=== PATIENT | female | born 1945 | race American Indian/Alaskan Native ===

== ENCOUNTER 2017-08-31 14:33 | Inpatient (IN) | payer MEDICARE ==
[2017-08-31] MEDS ORDERED: ATIVAN ONE (14:57)
[2017-08-31] MEDS ORDERED: ATIVAN IV ONE (15:00)
[2017-08-31] MEDS ORDERED: KEPPRA 1,000 MG/NS 0.75% 100ML 1,000 MG/100 ML BAG IV ONE (15:01)
[2017-08-31] MEDS ORDERED: NACL 0.9% 500 ML 500 ML IV ONE (15:06)
[2017-08-31 16:02] LABS: Basophils % (Auto) 0.2 % (0.0-1.8); Eosinophils % (Auto) 0.1 % (0.0-4.3); Hematocrit 32.7 % (30.3-42.9); Hemoglobin 10.9 gm/dl (10.1-14.3); Lymphocytes # (Auto) 0.4 K/mm3 (1.2-5.4); Mean Corpuscular HGB Conc 33 % (30-34); Mean Corpuscular Hemoglobin 32 pg (28-32); Mean Corpuscular Volume 97 fl (79-97); Monocytes # (Auto) 0.5 K/mm3 (0.0-0.8); Monocytes % (Auto) 5.4 % (0.0-7.3); Platelet Count 225 K/mm3 (140-440); Red Blood Count 3.38 M/mm3 (3.65-5.03); Red Cell Distribution Width 14.2 % (13.2-15.2)
[2017-08-31 16:25] LABS: Albumin 3.9 g/dL (3.9-5); Calcium 9.1 mg/dL (8.4-10.2)
--- NOTE | 2017-08-31 16:50 | Cat Scan Report ---
FINAL REPORT EXAM: CT HEAD/BRAIN WO CON HISTORY: Seizure TECHNIQUE: Standard unenhanced CT of the head at 5.0 millimeter axial increments. Exam is technically limited by patient motion. PRIORS: CT head 09/20/2016 FINDINGS: There is a new area of hypodensity in the right superior parietal region and occipital region (axial image 5, series 8). Findings are consistent with an evolving subacute infarct. The ventricular system is normal in size and configuration. There is moderate cerebral atrophy. There is high density material along the cortical surface involving the medial aspect of the right occipital lobe (axial image 31, series 6). This appearance is typical of surface calcification or an AVM. There is no evidence for mass lesion, mass effect, midline shift, or acute intracranial hemorrhage. No evidence for acute skull fracture is seen. No abnormality in the overlying scalp soft tissues is seen. Visualized paranasal sinuses are clear. IMPRESSION: 1. New area of hypodensity in the right superior parietal and occipital region consistent with an evolving subacute infarct 2. Ribbon-like high density material along the cortical surface of the medial right occipital lobe, unchanged. Findings typical of calcification or an AVM. This can be further differentiated by MRI.
[2017-08-31] MEDS ORDERED: HumuLIN R IV ONE (16:51)
--- NOTE | 2017-08-31 20:58 | Emergency Department Report ---
HPI <DAYJOSH - Last Filed: 08/31/17 23:09> - HPI HPI: 72 year-old female presents to the emergency department by EMS from home with the original complaint of multiple seizures. Apparently The patient had a total of 3 seizures with the first 2 being relatively short what the third seizure lasting about 3 minutes. The patient presents altered and unable to give any history. There is some previous records that show that the patient does have some history of seizures but unknown if she is on any antiepileptic medications. The family later came bedside and says that the patient was at her normal status this morning when she went to a graduation and then afterwards when they went out to [facility] for lunch. However when they returned home the patient had some weakness and was unable to ambulate to the bathroom. She then started appearing to droop or head and stare off into space. This was the point where they called 911 and shortly afterwards the patient started having some convulsions consistent with previous seizures. The patient received 2 mg of intranasal Ativan in route. Records also show that the patient has a history of previous CVA, DVT, diabetes. <SERGIO HU S - Last Filed: 09/01/17 09:23> - General Chief Complaint: Seizure Time Seen by Provider: 08/31/17 15:08 ED Past Medical Hx <JOSH DAY - Last Filed: 08/31/17 23:09> - Past Medical History Previous Medical History?: Yes Hx Hypertension: Yes Hx CVA: Yes Hx Diabetes: Yes Hx Deep Vein Thrombosis: Yes Hx Seizures: Yes (Hx) Hx Asthma: Yes (Hx) Additional medical history: HIGH CHOLESTEROL. DVT. PE. Encephalopathy - Surgical History Past Surgical History?: Yes Additional Surgical History: HYSTERECTOMY - Social History Smoking Status: Unknown if ever smoked <SERGIO HU S - Last Filed: 09/01/17 09:23> - Medications Home Medications: Home Medications Medication Instructions Recorded Confirmed Last Taken Type Amlodipine Besylate [Norvasc] 5 mg PO QDAY 10/01/16 10/01/16 Unknown History Insulin Glargine [Lantus VIAL] 10 units SC BID 10/01/16 10/01/16 Unknown History Lovastatin [Altoprev] 20 mg PO QDAY 10/01/16 10/01/16 Unknown History Memantine HCl [Namenda Xr] 20 mg PO QDAY 10/01/16 10/01/16 Unknown History Metformin HCl [Glucophage] 500 mg PO BID 10/01/16 10/01/16 Unknown History Topiramate [Topamax] 100 mg PO BID 10/01/16 10/01/16 Unknown History glipiZIDE [Glucotrol] 5 mg PO BID 10/01/16 10/01/16 Unknown History levETIRAcetam [Keppra TAB] 1,000 mg PO BID #60 tablet 10/08/16 Unknown Rx ED Review of Systems ROS: Stated complaint: SEIZURE Other details as noted in HPI <JOSH DAY - Last Filed: 08/31/17 23:09> ROS: Stated complaint: SEIZURE Other details as noted in HPI Comment: Unobtainable due to pts medical conditions <SERGIO HU - Last Filed: 09/01/17 09:23> Physical Exam - Physical Exam Vital Signs: Vital Signs 08/31/17 08/31/17 14:54 15:09 Pulse Rate 153 H Respiratory 18 16 Rate Blood Pressure 145/79 O2 Sat by Pulse 100 Oximetry <JOSH DAY - Last Filed: 08/31/17 23:09> - Physical Exam Vital Signs: Vital Signs 08/31/17 14:54 Pulse Rate 153 H Respiratory 18 Rate Blood Pressure 145/79 O2 Sat by Pulse 100 Oximetry Physical Exam: GENERAL: Patient is ill-appearing and altered/confused. HENT: Normocephalic. Atraumatic. Patient has moist mucous membranes. EYES: Extraocular motions are intact. Pupils equal reactive to light bilaterally. NECK: Supple. Trachea is midline. CHEST/LUNGS: Clear to auscultation. There is no respiratory distress noted. HEART/CARDIOVASCULAR: Regular. There is moderate tachycardia. There is no murmur. ABDOMEN: Abdomen is soft, nontender. Patient has normal bowel sounds. There is no abdominal distention. SKIN: Skin is warm and dry. NEURO: The patient's eyes are open spontaneously but she is otherwise unresponsive. She occasionally will become rigid for a few seconds but this is not rhythmic and does not appear convulsive. She withdraws from painful stimuli. She is seen moving all 4 of her extremities. She is nonverbal and does not follow any commands. MUSCULOSKELETAL: There is no tenderness or deformity. There is no evidence of acute injury. <SERGIO HU - Last Filed: 09/01/17 09:23> ED Course Vital Signs 08/31/17 08/31/17 14:54 15:09 Pulse Rate 153 H Respiratory 18 16 Rate Blood Pressure 145/79 O2 Sat by Pulse 100 Oximetry <JOSH DAY - Last Filed: 08/31/17 23:09> Vital Signs 08/31/17 14:54 Pulse Rate 153 H Respiratory 18 Rate Blood Pressure 145/79 O2 Sat by Pulse 100 Oximetry - Reevaluation(s) Reevaluation #1: 08/31/17 21:00 NIH Stroke Scale/Score (NIHSS) from [employer] [place] on 08/31/2017 All calculations should be rechecked by clinician prior to use RESULT SUMMARY: 13 points NIH Stroke Scale INPUTS: 1A: Level of consciousness > 2 = Requires repeated stimulation to arouse 1B: Ask month and age > 2 = Aphasic 1C: 'Blink eyes' & 'squeeze hands' > 2 = Performs 0 tasks 2: Horizontal extraocular movements > 0 = Normal 3: Visual aguilar > 0 = No visual loss 4: Facial palsy > 0 = Normal symmetry 5A: Left arm motor drift > 0 = No drift for 10 seconds 5B: Right arm motor drift > 0 = No drift for 10 seconds 6A: Left leg motor drift > 0 = No drift for 5 seconds 6B: Right leg motor drift > 0 = No drift for 5 seconds 7: Limb Ataxia > 0 = No ataxia 8: Sensation > 2 = Coma/unresponsive 9: Language/aphasia > 3 = Coma/unresponsive 10: Dysarthria > 2 = Mute/anarthric 11: Extinction/inattention > 0 = No abnormality This NIH stroke scale does not appear completely valid as a patient does show some spontaneous movement of her extremities but is unable to show that there is no drift for an extended period of time as she does not follow any commands. It is also hard to test for sensation and her visual aguilar. - Consultations Consultation #1: I spoke with the telemedicine neurologist, Dr. Whiting, who recommended that the patient receive a CT angiography of the head and neck. The original CT of the head showed a read that says that there could be a "evolving subacute" infarction. If there are signs of thrombosis or occlusion, then the patient may need transfer to another facility. If negative, the patient should be kept at [facility] and should have an MRI. The patient presented with seizures, there is no obvious last known well time, and she was not a TPA candidate. 08/31/17 20:56 09/01/17 09:22 <SERGIO HU - Last Filed: 09/01/17 09:23> - EJ/Peripheral Line Arm R Time Out Performed: Yes Indications: nurses unable to establis Skin Cleansed in Sterile Fashion: Yes Size: 20 Dressing Placed: Tegaderm, tape Patient Tolerated Procedure: well Additional Comments: ultrasound guided <SERGIO HU - Last Filed: 09/01/17 09:23> ED Medical Decision Making - Lab Data Result diagrams: 08/31/17 15:45 08/31/17 15:45 - Medical Decision Making Patient CTA of the head and neck were essentially within normal limits. Patient will be admitted to the hospitalist service at this time Dr. Wise was consulted. <BARBJOSH - Last Filed: 08/31/17 23:09> - Lab Data Result diagrams: 08/31/17 15:45 08/31/17 15:45 - EKG Data -: EKG Interpreted by Sc EKG shows normal: sinus rhythm (PVCs), axis (left axis deviation), intervals, QRS complexes (Q wave to the inferior leads), ST-T waves Rate: tachycardia (132 bpm) - EKG Data When compared to previous EKG there are: previous EKG unavailable Interpretation: other (sinus tachycardia with PVCs, left axis deviation, Q waves in inferior leads) - Radiology Data Radiology results: report reviewed EXAM: CT HEAD/BRAIN WO CON HISTORY: Seizure TECHNIQUE: Standard unenhanced CT of the head at 5.0 millimeter axial increments. Exam is technically limited by patient motion. PRIORS: CT head 09/20/2016 FINDINGS: There is a new area of hypodensity in the right superior parietal region and occipital region (axial image 5, series 8). Findings are consistent with an evolving subacute infarct. The ventricular system is normal in size and configuration. There is moderate cerebral atrophy. There is high density material along the cortical surface involving the medial aspect of the right occipital lobe (axial image 31, series 6). This appearance is typical of surface calcification or an AVM. There is no evidence for mass lesion, mass effect, midline shift, or acute intracranial hemorrhage. No evidence for acute skull fracture is seen. No abnormality in the overlying scalp soft tissues is seen. Visualized paranasal sinuses are clear. IMPRESSION: 1. New area of hypodensity in the right superior parietal and occipital region consistent with an evolving subacute infarct 2. Ribbon-like high density material along the cortical surface of the medial right occipital lobe, unchanged. Findings typical of calcification or an AVM. This can be further differentiated by MRI. Transcribed By: [facility] Dictated By: TIERA RODRIGUES MD Electronically Authenticated By: TIERA RODRIGUES MD Signed Date/Time: 08/31/17 1647 PROCEDURE: CT ANGIO HEAD TECHNIQUE: Computerized tomographic angiography of the head was performed after the IV injection of iodinated nonionic contrast including image processing. The image data was postprocessed using 2-dimensional multiplanar reformatted (MPR) and 3-dimensional (MIP and/or volume rendered) techniques. HISTORY: CVA COMPARISON: No prior studies are available for comparison. FINDINGS: This study is limited due to motion artifacts. Intracranial vessels: Carotid siphon: Normal. Anterior cerebral: Normal. Middle cerebral: Normal. Posterior cerebral:Normal. Vertebral arteries including basilar: Normal. Aneurysms: None. Dural sinuses: Normal. IMPRESSION: No obvious abnormality involving the [place]. Limited study due to motion artifacts. Transcribed By: [facility] [place] Dictated By: LOURDES ELDER Electronically Authenticated By: LOURDES ELDER Signed Date/Time: 08/31/17 7285 PROCEDURE: CT ANGIO NECK TECHNIQUE: Computerized tomographic angiography of the neck was performed after the IV injection of iodinated nonionic contrast including image processing. The image data was postprocessed using 2-dimensional multiplanar reformatted (MPR) and 3-dimensional (MIP and/or volume rendered) techniques. HISTORY: CVA COMPARISON: No prior studies are available for comparison. Note: Assessment of carotid artery stenosis is based on measurement of the distal internal carotid artery diameter as the denominator for stenosis calculations and the [place] Symptomatic Carotid Endarterectomy Trial (NASCET) stenosis criteria . CPT 3100F FINDINGS: Sinuses: Normal . Non vascular cervical structures: No significant abnormality . Aortic arch: Aortic arch is not completely included in the study. Origins of great vessels are not included.. Right carotid artery: Normal . Left carotid artery: Normal . Vertebral arteries: Normal . Left lobe thyroid demonstrates an inhomogeneous nodule measuring 1.4 x 1.4 centimeters. Multilevel cervical spondylosis is noted with moderate degree bilateral neural foraminal stenosis at C6-7 IMPRESSION: Origins of great vessels are not included in the study. Otherwise unremarkable study. Left lobe thyroid nodule. Ultrasound evaluation is recommended. Multilevel cervical spondylosis most marked at C6-7. Transcribed By: [facility] [place] Dictated By: LOURDES ELDER Electronically Authenticated By: LOURDES ELDER Signed Date/Time: 08/31/17 9363 - Medical Decision Making The patient's initial presentation was for possible status epilepticus as she had had 3 witnessed seizures prior to presentation including one that lasted for minutes. When she got us she did not appear to be in the midst of a seizure but does show confusion and unable to cooperate. She had moderate tachycardia. An IV was placed and she was given IV fluid, Keppra and some Ativan. A CT of the head was done that did not show any bleed, shift, mass but did show concern for an "evolving subacute infarct." For this reason I spoke with neurology who recommended a CT angiography of the head and neck to make sure that there is no acute occlusion, thrombosis or stenosis. We had some difficulty getting appropriate vascular access to do the angiography testing but eventually were able to obtain this and it did not show any signs of any other acute process. The labs show hyperglycemia with a blood sugar of about 450 but she does not appear to be in diabetic ketoacidosis. She was given IV insulin. Family eventually M bedside and discussed some signs of possible strokelike activity prior to the seizures. However there was not any specific last known well time, and the patient's symptoms which are generalized, the patient did not appear to be a TPA candidate at that time. She will be admitted to the hospital for further evaluation and treatment was accepted for admission by the hospitalist service. - Differential Diagnosis CVA, TIA, Seizures, Dementia, Sepsis <SERGIO HU - Last Filed: 09/01/17 09:23> Critical care attestation.: If time is entered above; I have spent that time in minutes in the direct care of this critically ill patient, excluding procedure time. <JOSH DAY - Last Filed: 08/31/17 23:09> Critical Care Time: No Critical care attestation.: If time is entered above; I have spent that time in minutes in the direct care of this critically ill patient, excluding procedure time. <SERGIO HU - Last Filed: 09/01/17 09:23> ED Disposition Is pt being admited?: Yes Does the pt Need Aspirin: No <JOSH DAY - Last Filed: 08/31/17 23:09> Is pt being admited?: Yes <SERGIO HU - Last Filed: 09/01/17 09:23> Clinical Impression: Seizure CVA (cerebral vascular accident) Qualifiers: CVA mechanism: unspecified Qualified Code(s): I63.9 - Cerebral infarction, unspecified Disposition: DC-09 OP ADMIT IP TO THIS HOSP Condition: Stable
[2017-08-31] MEDS ORDERED: HumuLIN R ONE (22:18)
--- NOTE | 2017-08-31 22:48 | Cat Scan Report ---
FINAL REPORT PROCEDURE: CT ANGIO HEAD TECHNIQUE: Computerized tomographic angiography of the head was performed after the IV injection of iodinated nonionic contrast including image processing. The image data was postprocessed using 2-dimensional multiplanar reformatted (MPR) and 3-dimensional (MIP and/or volume rendered) techniques. HISTORY: CVA COMPARISON: No prior studies are available for comparison. FINDINGS: This study is limited due to motion artifacts. Intracranial vessels: Carotid siphon: Normal. Anterior cerebral: Normal. Middle cerebral: Normal. Posterior cerebral:Normal. Vertebral arteries including basilar: Normal. Aneurysms: None. Dural sinuses: Normal. IMPRESSION: No obvious abnormality involving the [place]. Limited study due to motion artifacts.
--- NOTE | 2017-08-31 22:54 | Cat Scan Report ---
FINAL REPORT PROCEDURE: CT ANGIO NECK TECHNIQUE: Computerized tomographic angiography of the neck was performed after the IV injection of iodinated nonionic contrast including image processing. The image data was postprocessed using 2-dimensional multiplanar reformatted (MPR) and 3-dimensional (MIP and/or volume rendered) techniques. HISTORY: CVA COMPARISON: No prior studies are available for comparison. Note: Assessment of carotid artery stenosis is based on measurement of the distal internal carotid artery diameter as the denominator for stenosis calculations and the [place] Symptomatic Carotid Endarterectomy Trial (NASCET) stenosis criteria . CPT 3100F FINDINGS: Sinuses: Normal . Non vascular cervical structures: No significant abnormality . Aortic arch: Aortic arch is not completely included in the study. Origins of great vessels are not included.. Right carotid artery: Normal . Left carotid artery: Normal . Vertebral arteries: Normal . Left lobe thyroid demonstrates an inhomogeneous nodule measuring 1.4 x 1.4 centimeters. Multilevel cervical spondylosis is noted with moderate degree bilateral neural foraminal stenosis at C6-7 IMPRESSION: Origins of great vessels are not included in the study. Otherwise unremarkable study. Left lobe thyroid nodule. Ultrasound evaluation is recommended. Multilevel cervical spondylosis most marked at C6-7.
--- NOTE | 2017-08-31 23:26 | History and Physical Report ---
History of Present Illness Date of examination: 08/31/17 History of present illness: 72-year-old woman history of hypertension, diabetes, hyperlipidemia, PE, DVT, hyperlipidemia, seizure was brought to the emergency room because she had seizures at home. Patient is postictal, unable to give a history nor his system. Old records reviewed PAST MEDICAL HISTORY: hypertension, diabetes, hyperlipidemia, PE, DVT, hyperlipidemia, seizure PAST SURGICAL HISTORY: Hysterectomy SOCIAL HISTORY: Unknown FAMILY HISTORY: Unknown Medications and Allergies Allergies Allergy/AdvReac Type Severity Reaction Status Date / Time tramadol Allergy Hallucinati Verified 10/01/16 13:14 on Home Medications Medication Instructions Recorded Confirmed Last Taken Type Amlodipine Besylate [Norvasc] 5 mg PO QDAY 10/01/16 10/01/16 Unknown History Insulin Glargine [Lantus VIAL] 10 units SC BID 10/01/16 10/01/16 Unknown History Lovastatin [Altoprev] 20 mg PO QDAY 10/01/16 10/01/16 Unknown History Memantine HCl [Namenda Xr] 20 mg PO QDAY 10/01/16 10/01/16 Unknown History Metformin HCl [Glucophage] 500 mg PO BID 10/01/16 10/01/16 Unknown History Topiramate [Topamax] 100 mg PO BID 10/01/16 10/01/16 Unknown History glipiZIDE [Glucotrol] 5 mg PO BID 10/01/16 10/01/16 Unknown History levETIRAcetam [Keppra TAB] 1,000 mg PO BID #60 tablet 10/08/16 Unknown Rx Exam - Physical Exam Narrative exam: Gen. appearance: Patient lying in bed, no apparent distress HEENT: Normocephalic, atraumatic, pupils equally round and reactive to light, unable to assess extraocular movement, and no sclericterus,. No JVD or thyromegaly or nodule,neck supple, no carotid bruit ,mucous membranes moist, unable to assess oral cavity Heart: S1, S2, regular rate and rhythm Lungs: Clear to auscultation bilaterally, breathing comfortable Abdomen: Positive bowel sounds, nontender, nondistended, no organomegaly Extremity: No edema, cyanosis, clubbing Skin: No rash, nodules, warm, dry Neuro: Able to assess - Constitutional Vitals: Temp Pulse Resp BP Pulse Ox 153 H 16 145/79 100 05/23/18 14:54 08/31/17 15:09 08/31/17 14:54 08/31/17 14:54 Results - Labs CBC & Chem 7: 08/31/17 15:45 08/31/17 15:45 Labs: Abnormal lab results 08/31/17 08/31/17 08/31/17 Range/Units 15:45 15:45 22:01 RBC 3.38 L (3.65-5.03) M/mm3 Lymph % (Auto) 5.0 L (13.4-35.0) % Lymph # 0.4 L (1.2-5.4) K/mm3 Seg Neutrophils % 89.3 H (40.0-70.0) % Seg Neutrophils # 8.0 H (1.8-7.7) K/mm3 Chloride 97.8 L (98-107) mmol/L Carbon Dioxide 18 L (22-30) mmol/L BUN 20 H (7-17) mg/dL Glucose 436 H (65-100) mg/dL POC Glucose 358 H (70-105) - Imaging and Cardiology CT Scan - head: report reviewed Assessment and Plan Assessment Subacute CVA Hypertension Diabetes Hyperlipidemia History of DVT, PE History of CVA Hyperlipidemia Plan Admit to medicine Obtain MRI of the head Nasrin checks, consult neurology, physical and occupational therapy IV Ativan as needed for breakthrough seizure, status post loading dose of Keppra Start aspirin, statin,IV fluid, DVT prophylaxis Check fingersticks, and initiate insulin sliding scale
[2017-08-31] MEDS ORDERED: DULCOLAX PR PRN (23:27)
[2017-08-31] MEDS ORDERED: ZOFRAN IV PRN (23:27)
[2017-08-31] MEDS ORDERED: TYLENOL PO PRN (23:27)
[2017-08-31] MEDS ORDERED: MILK OF MAGNESIA PO PRN (23:27)
[2017-08-31] MEDS ORDERED: APRESOLINE IV PRN (23:27)
[2017-08-31] MEDS ORDERED: NACL 0.45% 1000 ML 1,000 ML IV SCH (23:45)
[2017-09-01 00:54] LABS: Creatine Kinase MB 4.5 ng/mL (0.0-4.0)
[2017-09-01] MEDS ORDERED: D50W (25GM) Syringe IV PRN (02:03)
--- NOTE | 2017-09-01 07:32 | Progress Note ---
Assessment and Plan Assessment and plan: Ms. Neil is a 72 yo woman with a history of htn, dm type2, dlp, Left leg dvt, bilateral lung PE and sz who pw multiple seizures from home with confusion. Old records show that patient was on Eliquis in 2017 but not listed on home medications now. Teleneurology was used and patient was deemed not tpa candidate because of no actual "last known well time" and on blood thinners. CT brain wo contrast IMPRESSION: 1. New area of hypodensity in the right superior parietal and occipital region consistent with an evolving subacute infarct 2. Ribbon-like high density material along the cortical surface of the medial right occipital lobe, unchanged. Findings typical of calcification or an AVM. This can be further differentiated by MRI. CTA brain IMPRESSION: No obvious abnormality involving the [place] of [place]. Limited study due to motion artifacts. CTA neck IMPRESSION: Origins of great vessels are not included in the study. Otherwise unremarkable study. Left lobe thyroid nodule. Ultrasound evaluation is recommended. Multilevel cervical spondylosis most marked at C6-7. -Status epilepitus: treat with keppra and prn iv ativan, neurologist consulted -Suspect new acute vs subacute ischemic stroke: get mri, stroke protocol, treat with asa, statin, (history of anticoagulation needs to be elucidated) -Acute encephalopathy due to the above -Severe protein calorie malnutrition, bmi 17.6: consult auto repair shop manager -History of pe/dvt: history of anticoagulation needs to be investigated -DVT prophylaxis: scd and sq lovenox d/w son Jordan @ [phone]==>Jordan's says his mother is not on blood thinners anymore, she completed the blood thinners. He also tells me that she did not take medication yesterday. NOT on anticoagulation at home. History Interval history: Patient was seen and examined. Follow-up on current diagnosis of seizures. Overnight uneventful. Patient not talking. Imaging, nursing note, chart, labs and old chart reviewed. Discussed with patient's son, Jordan who lives with her. She went to 3 yo graduation and went to [facility] after and she was doing okay. She was complaining of being cold. Then he found her on the floor about 5 minutes. He noticed slurred speech. Jordan's says his mother is not on blood thinners anymore, she completed the blood thinners. Hospitalist Physical - Physical exam Narrative exam: GEN: severe cachetic, bmi 17.6, lethargic, mumbles HEENT: NCAT, EOMI, PERRL, OP Clear NECK: supple, no adenopathy, _+ thyromegaly, no JVD CVS/HEART: Regular tachycardia normal S1S2, pulses present bilaterally CHEST/LUNGS: Symmetrical chest expansion, good air entry bilaterally GI/Abdomen: soft, NTND, good bowel sounds, no guarding or rebound /Bladder: no suprapubic tenderness, no CVA or paraspinal tenderness EXT/Skin: no c/c/e, no obvious rash MSK: not moving Neuro: CN 2-12 grossly intact, doesn't follow commands Psych: confused - Constitutional Vitals: Temp Pulse Resp BP Pulse Ox 153 H 16 145/79 100 08/31/17 14:54 08/31/17 15:09 08/31/17 14:54 08/31/17 14:54 Results - Labs CBC & Chem 7: 08/31/17 15:45 08/31/17 15:45 Labs: Laboratory Last Values WBC 8.9 K/mm3 (4.5-11.0) 08/31/17 15:45 RBC 3.38 M/mm3 (3.65-5.03) L 08/31/17 15:45 Hgb 10.9 gm/dl (10.1-14.3) 08/31/17 15:45 Hct 32.7 % (30.3-42.9) 08/31/17 15:45 MCV 97 fl (79-97) 08/31/17 15:45 MCH 32 pg (28-32) 08/31/17 15:45 MCHC 33 % (30-34) 08/31/17 15:45 RDW 14.2 % (13.2-15.2) 08/31/17 15:45 Plt Count 225 K/mm3 (140-440) 08/31/17 15:45 Lymph % (Auto) 5.0 % (13.4-35.0) L 08/31/17 15:45 [place] % (Auto) 5.4 % (0.0-7.3) 08/31/17 15:45 Eos % (Auto) 0.1 % (0.0-4.3) 08/31/17 15:45 Baso % (Auto) 0.2 % (0.0-1.8) 08/31/17 15:45 Lymph # 0.4 K/mm3 (1.2-5.4) L 08/31/17 15:45 [place] # 0.5 K/mm3 (0.0-0.8) 08/31/17 15:45 Eos # 0.0 K/mm3 (0.0-0.4) 08/31/17 15:45 Baso # 0.0 K/mm3 (0.0-0.1) 08/31/17 15:45 Seg Neutrophils % 89.3 % (40.0-70.0) H 08/31/17 15:45 Seg Neutrophils # 8.0 K/mm3 (1.8-7.7) H 08/31/17 15:45 VBG pH 7.355 (7.320-7.420) 08/31/17 17:12 Sodium 140 mmol/L (137-145) 08/31/17 15:45 Potassium 3.9 mmol/L (3.6-5.0) 08/31/17 15:45 Chloride 97.8 mmol/L (98-107) L 08/31/17 15:45 Carbon Dioxide 18 mmol/L (22-30) L 08/31/17 15:45 Anion Gap 28 mmol/L 08/31/17 15:45 BUN 20 mg/dL (7-17) H 08/31/17 15:45 Creatinine 1.1 mg/dL (0.7-1.2) 08/31/17 15:45 Estimated GFR 59 ml/min 08/31/17 15:45 BUN/Creatinine Ratio 18 % 08/31/17 15:45 Glucose 436 mg/dL (65-100) H 08/31/17 15:45 POC Glucose 358 (70-105) H 08/31/17 22:01 Calcium 9.1 mg/dL (8.4-10.2) 08/31/17 15:45 Total Bilirubin 0.20 mg/dL (0.1-1.2) 08/31/17 15:45 AST 26 units/L (5-40) 08/31/17 15:45 ALT 47 units/L (7-56) 08/31/17 15:45 Alkaline Phosphatase 61 units/L (35-129) 08/31/17 15:45 Total Creatine Kinase 377 units/L (30-135) H 08/31/17 23:56 CK-MB (CK-2) 4.5 ng/mL (0.0-4.0) H 08/31/17 23:56 CK-MB (CK-2) Rel Index 1.1 (0-4) 08/31/17 23:56 Troponin T < 0.010 ng/mL (0.00-0.029) 08/31/17 23:56 Total Protein 6.3 g/dL (6.3-8.2) 08/31/17 15:45 Albumin 3.9 g/dL (3.9-5) 08/31/17 15:45 Albumin/Globulin Ratio 1.6 % 08/31/17 15:45 TSH 2.310 mlU/mL (0.270-4.200) 08/31/17 15:45 Plasma/Serum Alcohol < 0.01 % (0-0.07) 08/31/17 15:45
[2017-09-01 09:53] LABS: Creatine Kinase MB 5.4 ng/mL (0.0-4.0)
[2017-09-01 10:11] LABS: Chol/HDL Ratio 1.59 %
[2017-09-01] MEDS: ASPIRIN PO SCH (10:21)
[2017-09-01] MEDS: LOVENOX SUB-Q SCH (10:21)
[2017-09-01] MEDS: TOPAMAX PO SCH (10:21)
[2017-09-01] MEDS: KEPPRA 1,000 MG in NACL 0.9% 100 ML IV SCH (10:21)
[2017-09-01] MEDS ORDERED: KEPPRA 1,000 MG/NS 0.75% 100ML 1,000 MG/100 ML BAG IV ONE (10:48)
[2017-09-01] MEDS ORDERED: PRAVACHOL PO SCH (22:00)
[2017-09-01] MEDS ORDERED: LOPRESSOR PO ONE (23:45)
[2017-09-02] MEDS: ATIVAN IV PRN (00:04)
[2017-09-02] MEDS: KEPPRA 1,000 MG in NACL 0.9% 100 ML IV SCH ×2 (00:04→10:08)
[2017-09-02] MEDS: TOPAMAX PO SCH ×3 (00:04→21:13)
[2017-09-02 06:25] LABS: Hemoglobin 12.7 gm/dl (10.1-14.3); Mean Corpuscular HGB Conc 33 % (30-34); Mean Corpuscular Hemoglobin 31 pg (28-32); Mean Corpuscular Volume 95 fl (79-97); Platelet Count 238 K/mm3 (140-440); Red Blood Count 4.11 M/mm3 (3.65-5.03); Red Cell Distribution Width 14.2 % (13.2-15.2)
[2017-09-02 06:28] LABS: Hematocrit 37.2 % (30.3-42.9)
[2017-09-02 06:43] LABS: BUN/Creatinine Ratio 15; Blood Urea Nitrogen 12 mg/dL (7-17); Calcium 9.3 mg/dL (8.4-10.2); Hemolysis Index 38
[2017-09-02] MEDS: LOVENOX SUB-Q SCH (10:08)
[2017-09-02] MEDS: SODIUM CHLORIDE FLUSH SYRINGE 10 ML IV PRN (10:09)
[2017-09-02] MEDS: ASPIRIN PO SCH (10:20)
--- NOTE | 2017-09-02 11:45 | Magnetic Resonance Report ---
FINAL REPORT EXAM: MR BRAIN WO CON HISTORY: stroke TECHNIQUE: MRI of the brain was performed. Images include: Axial diffusion, axial ADC map, axial GRE, sagittal T1, axial T2, axial FLAIR, axial T1, coronal FLAIR PRIORS: None. FINDINGS: There are no abnormal areas of diffusion restriction to indicate acute infarct. There is a right parietal infarct which does not appear acute. It is new since CT of 09/20/2016. There are signal changes in the white matter compatible with small vessel ischemic disease and gliosis in the fish-infarct right posterior parietal region. There is mild cerebral atrophy. Ventricular size is appropriate for brain volume. There is susceptibility artifact in region of infarcts suggesting prior hemorrhage. IMPRESSION: Infarct in the right parietal region not acute but new since prior CT of 09/20/2016. Specific findings as above.
--- NOTE | 2017-09-02 13:08 | Progress Note ---
Assessment and Plan Assessment and plan: Ms. Neil is a 72 yo woman with a history of htn, dm type2, dlp, Left leg dvt, bilateral lung PE and sz who pw multiple seizures from home with confusion. Old records show that patient was on Eliquis in 2017 but not listed on home medications now. Teleneurology was used and patient was deemed not tpa candidate because of no actual "last known well time" and on blood thinners. CT brain wo contrast IMPRESSION: 1. New area of hypodensity in the right superior parietal and occipital region consistent with an evolving subacute infarct 2. Ribbon-like high density material along the cortical surface of the medial right occipital lobe, unchanged. Findings typical of calcification or an AVM. This can be further differentiated by MRI. CTA brain IMPRESSION: No obvious abnormality involving the [place]. Limited study due to motion artifacts. CTA neck IMPRESSION: Origins of great vessels are not included in the study. Otherwise unremarkable study. Left lobe thyroid nodule. Ultrasound evaluation is recommended. Multilevel cervical spondylosis most marked at C6-7. -Status epilepitus: treat with keppra and prn iv ativan, neurologist consulted -New subacute ischemic stroke, ?hemorrhage conversion: get mri, stroke protocol , treat with asa, statin, (history of anticoagulation needs to be elucidated) -Acute encephalopathy due to the above -Severe protein calorie malnutrition, bmi 17.6: consult backup sawyer -History of pe/dvt: history of anticoagulation needs to be investigated -DVT prophylaxis: scd and sq lovenox to be d/c because blood in the infarcts d/w son Jordan @ [phone]==>Jordan's says his mother is not on blood thinners anymore, she completed the blood thinners. He also tells me that she did not take medication yesterday. Discussed with patient's son, Jordan who lives with her. She went to 3 yo graduation and went to [facility] after and she was doing okay. She was complaining of being cold. Then he found her on the floor about 5 minutes. He noticed slurred speech. Jordan's says his mother is not on blood thinners anymore, she completed the blood thinners. NOT on anticoagulation at home. Brain MRI reported as infarct in right parietal region not acute but new since prior CT of 09/20/2016, there is susceptibility artifact in the region of infarcts suggesting prior hemorrhage. I called Neurology to discuss, Dr. Partida will call me back because he dictation/ recommendation is not available in [employer] yet History Interval history: Patient was seen and examined. Follow-up on current diagnosis of seizures. Overnight uneventful. Patient not talking. Imaging, nursing note, chart, labs and old chart reviewed. Hospitalist Physical - Constitutional Vitals: Temp Pulse Resp BP Pulse Ox 98.0 F 88 20 116/74 96 09/02/17 07:31 09/02/17 10:00 09/02/17 10:00 09/02/17 07:31 09/02/17 12:15 Results - Labs CBC & Chem 7: 09/02/17 05:01 09/02/17 05:01 Labs: Laboratory Last Values WBC 7.0 K/mm3 (4.5-11.0) 09/02/17 05:01 RBC 4.11 M/mm3 (3.65-5.03) 09/02/17 05:01 Hgb 12.7 gm/dl (10.1-14.3) 09/02/17 05:01 Hct 37.2 % (30.3-42.9) 09/02/17 05:01 MCV 95 fl (79-97) 09/02/17 05:01 MCH 31 pg (28-32) 09/02/17 05:01 MCHC 33 % (30-34) 09/02/17 05:01 RDW 14.2 % (13.2-15.2) 09/02/17 05:01 Plt Count 238 K/mm3 (140-440) 09/02/17 05:01 Lymph % (Auto) 5.0 % (13.4-35.0) L 08/31/17 15:45 [place] % (Auto) 5.4 % (0.0-7.3) 08/31/17 15:45 Eos % (Auto) 0.1 % (0.0-4.3) 08/31/17 15:45 Baso % (Auto) 0.2 % (0.0-1.8) 08/31/17 15:45 Lymph # 0.4 K/mm3 (1.2-5.4) L 08/31/17 15:45 [place] # 0.5 K/mm3 (0.0-0.8) 08/31/17 15:45 Eos # 0.0 K/mm3 (0.0-0.4) 08/31/17 15:45 Baso # 0.0 K/mm3 (0.0-0.1) 08/31/17 15:45 Seg Neutrophils % 89.3 % (40.0-70.0) H 08/31/17 15:45 Seg Neutrophils # 8.0 K/mm3 (1.8-7.7) H 08/31/17 15:45 VBG pH 7.355 (7.320-7.420) 08/31/17 17:12 Sodium 140 mmol/L (137-145) 09/02/17 05:01 Potassium 3.6 mmol/L (3.6-5.0) 09/02/17 05:01 Chloride 96.9 mmol/L (98-107) L 09/02/17 05:01 Carbon Dioxide 25 mmol/L (22-30) D 09/02/17 05:01 Anion Gap 22 mmol/L 09/02/17 05:01 BUN 12 mg/dL (7-17) 09/02/17 05:01 Creatinine 0.8 mg/dL (0.7-1.2) 09/02/17 05:01 Estimated GFR > 60 ml/min 09/02/17 05:01 BUN/Creatinine Ratio 15 % 09/02/17 05:01 Glucose 169 mg/dL (65-100) H 09/02/17 05:01 POC Glucose 156 (70-105) H 09/02/17 12:03 Calcium 9.3 mg/dL (8.4-10.2) 09/02/17 05:01 Total Bilirubin 0.20 mg/dL (0.1-1.2) 08/31/17 15:45 AST 26 units/L (5-40) 08/31/17 15:45 ALT 47 units/L (7-56) 08/31/17 15:45 Alkaline Phosphatase 61 units/L (35-129) 08/31/17 15:45 Total Creatine Kinase 338 units/L (30-135) H 09/01/17 09:21 CK-MB (CK-2) 5.4 ng/mL (0.0-4.0) H 09/01/17 09:21 CK-MB (CK-2) Rel Index 1.5 (0-4) 09/01/17 09:21 Troponin T < 0.010 ng/mL (0.00-0.029) 09/01/17 09:21 Total Protein 6.3 g/dL (6.3-8.2) 08/31/17 15:45 Albumin 3.9 g/dL (3.9-5) 08/31/17 15:45 Albumin/Globulin Ratio 1.6 % 08/31/17 15:45 Triglycerides 78 mg/dL (2-149) 09/01/17 09:16 Cholesterol 196 mg/dL (50-199) 09/01/17 09:16 LDL Cholesterol Direct 89 mg/dL (50-130) 09/01/17 09:16 HDL Cholesterol 123 mg/dL (40-59) H 09/01/17 09:16 Cholesterol/HDL Ratio 1.59 % 09/01/17 09:16 TSH 2.310 mlU/mL (0.270-4.200) 08/31/17 15:45 Plasma/Serum Alcohol < 0.01 % (0-0.07) 08/31/17 15:45
--- NOTE | 2017-09-02 14:36 | Consultation ---
NEUROLOGICAL CONSULTATION REASON FOR CONSULTATION: Seizures. HISTORY OF PRESENT ILLNESS: History of present illness was obtained from the records and from the physician. The patient could not give me any history. The patient appeared to be very demented. When I came there, she was asleep; I woke her, but she was talking and responding to questions; however, she did not know exactly what happened to her. She knew her name, but not her age. She did not know why she was brought to the hospital, but sometimes she will just look straight, but not responding well because she appeared to be very weak. The history revealed that she was brought to the Emergency Room because she had some seizures at home. This was probably generalized tonic-clonic, but this was just adequately described. Then, when she was seen in the hospital, she was postictal. She could not give any history. The patient has been stable and has no description of any seizure. PAST MEDICAL HISTORY: The patient has hypertension, diabetes, hypercholesterolemia, pulmonary embolus, DVT, and seizure. PAST SURGICAL HISTORY: The patient had hysterectomy. SOCIAL HISTORY: Unknown. FAMILY HISTORY: Unknown. ALLERGIES: TRAMADOL, WHICH CAUSED HALLUCINATION. MEDICATIONS AT HOME: Amlodipine, insulin, lovastatin, memantine, metformin, topiramate, and Keppra. PHYSICAL EXAMINATION: GENERAL: Revealed a patient who appeared to be chronically ill. She is very thin. VITAL SIGNS: Her pulse rate was 115, respirations 16 and regular, blood pressure 145/79, 100% saturation. HEAD, EYES, EARS, NOSE, MOUTH, AND THROAT: The patient's face is very thin and there is loss of muscle tissue. No intracranial or intra-abdominal bruit. NECK: Supple, thin. No carotid bruit. HEART: She was in regular rhythm, strong beat. There is a prominent intercostal space. Hyperresonant sounds. ABDOMEN: Flat. No organomegaly. No definitive tenderness. EXTREMITIES: Thin and showing some loss of muscle tissue. Atrophy of the intravertebral muscles. NEUROLOGIC: Revealed the patient who is looking awake, but does not respond very well. However, she does not appear to be demented because she can follow and interact. She appeared to be very weak. Cranial nerve showed ____. She has poorly kept teeth. Probably mild facial weakness. Motor examination relatively weak on the left compared to the right. Reflexes symmetrical. There is a mild Babinski to the left. The patient was not ambulated. CLINICAL IMPRESSION: 1. The patient has seizure. 2. Possible right-sided hemispheric dysfunction. This could be stroke and could be the source of seizure. Underlying medical disease include hypertension, diabetes, and hypercholesterolemia. RECOMMENDATIONS: The patient is being followed. Continue current medication for seizures, medical management, hydration, and nutrition. An MRI of the brain was ordered. The patient had a CAT scan of the brain, which showed new area of hypodensity in the right superior, parietal, and occipital region, consistent with infarct. Long-term prognosis appeared to be poor. The patient needs nutrition. Thank you for this referral. JOB# [id number] AYANA/NATHALIE
[2017-09-02] MEDS: KEPPRA PO SCH (21:13)
[2017-09-03 05:16] LABS: Hematocrit 37.8 % (30.3-42.9); Hemoglobin 13.1 gm/dl (10.1-14.3); Mean Corpuscular HGB Conc 35 % (30-34); Mean Corpuscular Hemoglobin 33 pg (28-32); Mean Corpuscular Volume 94 fl (79-97); Platelet Count 211 K/mm3 (140-440); Red Blood Count 4.02 M/mm3 (3.65-5.03)
[2017-09-03 05:27] LABS: BUN/Creatinine Ratio 18; Blood Urea Nitrogen 14 mg/dL (7-17); Calcium 9.2 mg/dL (8.4-10.2); Hemolysis Index 21
[2017-09-03] MEDS: KEPPRA PO SCH (10:55)
[2017-09-03] MEDS: TOPAMAX PO SCH (10:55)
[2017-09-03] MEDS: ASPIRIN PO SCH (10:55)
--- NOTE | 2017-09-03 11:32 | Progress Note ---
Assessment and Plan Assessment and plan: Ms. Neil is a 72 yo woman with a history of htn, dm type2, dlp, Left leg dvt, bilateral lung PE and sz who pw multiple seizures from home with confusion. Old records show that patient was on Eliquis in 2017 but not listed on home medications now. Teleneurology was used and patient was deemed not tpa candidate because of no actual "last known well time" and on blood thinners ( disproven). CT brain wo contrast IMPRESSION: 1. New area of hypodensity in the right superior parietal and occipital region consistent with an evolving subacute infarct 2. Ribbon-like high density material along the cortical surface of the medial right occipital lobe, unchanged. Findings typical of calcification or an AVM. This can be further differentiated by MRI. CTA brain IMPRESSION: No obvious abnormality involving the [place] of [place]. Limited study due to motion artifacts. CTA neck IMPRESSION: Origins of great vessels are not included in the study. Otherwise unremarkable study. Left lobe thyroid nodule. Ultrasound evaluation is recommended. Multilevel cervical spondylosis most marked at C6-7. Brain MRI reported as infarct in right parietal region not acute but new since prior CT of 09/20/2016, there is susceptibility artifact in the region of infarcts suggesting prior hemorrhage. -Status epilepitus: treat with keppra and prn iv ativan, neurologist consulted -New subacute ischemic stroke, ?hemorrhage conversion: get mri, stroke protocol , treat with asa, statin, (history of anticoagulation needs to be elucidated)==> not on anticoagulation at home -Acute encephalopathy due to the above -Severe protein calorie malnutrition, bmi 17.6: consulted copy chief, dietary supplements -History of pe/dvt: history of anticoagulation needs to be investigated -DVT prophylaxis: scd and sq lovenox to be d/c because blood in the infarcts d/w son Jordan @ [phone]==>Jordan's says his mother is not on blood thinners anymore, she completed the blood thinners. He also tells me that she did not take medication yesterday. Discussed with patient's son, Jordan who lives with her. She went to 3 yo graduation and went to [facility] after and she was doing okay. She was complaining of being cold. Then he found her on the floor about 5 minutes. He noticed slurred speech. Jordan's says his mother is not on blood thinners anymore, she completed the blood thinners. NOT on anticoagulation at home. 09/02/17: I called Neurology to discuss, Dr. Partida will call me back because he dictation/recommendation is not available in [employer] yet. I spoke with Dr. Partida and told him about the MRI, he will investigate 09/03/17: Repeat CT head r/o hemorrhagic conversion. D/W son Jordan over the phone. Disposition: SNF when available. Son, doesn't want [facility] History Interval history: Patient was seen and examined. Follow-up on current diagnosis of seizures. Overnight uneventful. Patient is talking some. Imaging, nursing note, chart, labs and old chart reviewed. Hospitalist Physical - Physical exam Narrative exam: GEN: severe cachetic, bmi 17.6, lethargic, mumbles HEENT: NCAT, EOMI, PERRL, OP Clear NECK: supple, no adenopathy, _+ thyromegaly, no JVD CVS/HEART: rrr, normal S1S2, pulses present bilaterally CHEST/LUNGS: Symmetrical chest expansion, good air entry bilaterally GI/Abdomen: soft, NTND, good bowel sounds, no guarding or rebound /Bladder: no suprapubic tenderness, no CVA or paraspinal tenderness EXT/Skin: no c/c/e, no obvious rash MSK: moving right side, left hemiparesis Neuro: CN 2-12 grossly intact, doesn't follow commands Psych: confused - Constitutional Vitals: Temp Pulse Resp BP Pulse Ox 97.3 F L 85 16 95/54 98 09/03/17 04:02 09/03/17 02:59 09/03/17 04:02 09/03/17 04:02 09/02/17 20:18 Results - Labs CBC & Chem 7: 09/03/17 04:27 09/03/17 04:27 Labs: Laboratory Last Values WBC 6.0 K/mm3 (4.5-11.0) 09/03/17 04:27 RBC 4.02 M/mm3 (3.65-5.03) 09/03/17 04:27 Hgb 13.1 gm/dl (10.1-14.3) 09/03/17 04:27 Hct 37.8 % (30.3-42.9) 09/03/17 04:27 MCV 94 fl (79-97) 09/03/17 04:27 MCH 33 pg (28-32) H 09/03/17 04:27 MCHC 35 % (30-34) H 09/03/17 04:27 RDW 14.0 % (13.2-15.2) 09/03/17 04:27 Plt Count 211 K/mm3 (140-440) 09/03/17 04:27 Lymph % (Auto) 5.0 % (13.4-35.0) L 08/31/17 15:45 [place] % (Auto) 5.4 % (0.0-7.3) 08/31/17 15:45 Eos % (Auto) 0.1 % (0.0-4.3) 08/31/17 15:45 Baso % (Auto) 0.2 % (0.0-1.8) 08/31/17 15:45 Lymph # 0.4 K/mm3 (1.2-5.4) L 08/31/17 15:45 [place] # 0.5 K/mm3 (0.0-0.8) 08/31/17 15:45 Eos # 0.0 K/mm3 (0.0-0.4) 08/31/17 15:45 Baso # 0.0 K/mm3 (0.0-0.1) 08/31/17 15:45 Seg Neutrophils % 89.3 % (40.0-70.0) H 08/31/17 15:45 Seg Neutrophils # 8.0 K/mm3 (1.8-7.7) H 08/31/17 15:45 VBG pH 7.355 (7.320-7.420) 08/31/17 17:12 Sodium 136 mmol/L (137-145) L 09/03/17 04:27 Potassium 3.9 mmol/L (3.6-5.0) 09/03/17 04:27 Chloride 94.3 mmol/L (98-107) L 09/03/17 04:27 Carbon Dioxide 26 mmol/L (22-30) 09/03/17 04:27 Anion Gap 20 mmol/L 09/03/17 04:27 BUN 14 mg/dL (7-17) 09/03/17 04:27 Creatinine 0.8 mg/dL (0.7-1.2) 09/03/17 04:27 Estimated GFR > 60 ml/min 09/03/17 04:27 BUN/Creatinine Ratio 18 % 09/03/17 04:27 Glucose 324 mg/dL (65-100) H 09/03/17 04:27 POC Glucose 304 (70-105) H 09/03/17 07:30 Calcium 9.2 mg/dL (8.4-10.2) 09/03/17 04:27 Total Bilirubin 0.20 mg/dL (0.1-1.2) 08/31/17 15:45 AST 26 units/L (5-40) 08/31/17 15:45 ALT 47 units/L (7-56) 08/31/17 15:45 Alkaline Phosphatase 61 units/L (35-129) 08/31/17 15:45 Total Creatine Kinase 338 units/L (30-135) H 09/01/17 09:21 CK-MB (CK-2) 5.4 ng/mL (0.0-4.0) H 09/01/17 09:21 CK-MB (CK-2) Rel Index 1.5 (0-4) 09/01/17 09:21 Troponin T < 0.010 ng/mL (0.00-0.029) 09/01/17 09:21 Total Protein 6.3 g/dL (6.3-8.2) 08/31/17 15:45 Albumin 3.9 g/dL (3.9-5) 08/31/17 15:45 Albumin/Globulin Ratio 1.6 % 08/31/17 15:45 Triglycerides 78 mg/dL (2-149) 09/01/17 09:16 Cholesterol 196 mg/dL (50-199) 09/01/17 09:16 LDL Cholesterol Direct 89 mg/dL (50-130) 09/01/17 09:16 HDL Cholesterol 123 mg/dL (40-59) H 09/01/17 09:16 Cholesterol/HDL Ratio 1.59 % 09/01/17 09:16 TSH 2.310 mlU/mL (0.270-4.200) 08/31/17 15:45 Plasma/Serum Alcohol < 0.01 % (0-0.07) 08/31/17 15:45
[2017-09-03] MEDS ORDERED: D50W (25GM) Syringe IV PRN (12:41)
[2017-09-03] MEDS: HumaLOG SUB-Q SCH ×2 (14:17→18:07)
--- NOTE | 2017-09-03 15:21 | Cat Scan Report ---
FINAL REPORT PROCEDURE: CT HEAD/BRAIN WO CON TECHNIQUE: Computerized tomography of the head was performed without contrast material. HISTORY: Ischemic stroke COMPARISON: 08/31/2017 FINDINGS: Evolving right posterior parietal infarct. No CT evidence of acute hemorrhage. There is again seen gyriform high density along the surface of the right medial occipital lobe, compatible with calcification. No CT evidence of intracranial mass or hydrocephalus. No acute fracture. There is mild right ethmoid sinus mucosal thickening. Mastoids are aerated. IMPRESSION: Evolution of previously seen right posterior parietal infarct. No CT evidence of acute hemorrhage
[2017-09-03] MEDS: ATIVAN IV PRN (18:12)
[2017-09-04] MEDS: KEPPRA PO SCH ×3 (00:05→23:22)
[2017-09-04] MEDS: TOPAMAX PO SCH ×3 (00:06→23:23)
[2017-09-04] MEDS: ATIVAN IV PRN (00:06)
[2017-09-04] MEDS: HumaLOG SUB-Q SCH ×4 (00:08→17:33)
[2017-09-04 05:37] LABS: Hematocrit 36.5 % (30.3-42.9); Mean Corpuscular HGB Conc 33 % (30-34); Mean Corpuscular Hemoglobin 32 pg (28-32); Mean Corpuscular Volume 96 fl (79-97); Platelet Count 225 K/mm3 (140-440); Red Blood Count 3.82 M/mm3 (3.65-5.03); Red Cell Distribution Width 14.1 % (13.2-15.2)
[2017-09-04 06:05] LABS: BUN/Creatinine Ratio 17; Blood Urea Nitrogen 10 mg/dL (7-17); Calcium 9.2 mg/dL (8.4-10.2); Hemolysis Index 4
[2017-09-04] MEDS: ASPIRIN PO SCH (09:29)
--- NOTE | 2017-09-04 14:08 | Progress Note ---
Assessment and Plan Assessment and plan: Ms. Neil is a 72 yo woman with a history of htn, dm type2, dlp, Left leg dvt, bilateral lung PE and sz who pw multiple seizures from home with confusion. Old records show that patient was on Eliquis in 2017 but not listed on home medications now. Teleneurology was used and patient was deemed not tpa candidate because of no actual "last known well time" and on blood thinners ( disproven). CT brain wo contrast IMPRESSION: 1. New area of hypodensity in the right superior parietal and occipital region consistent with an evolving subacute infarct 2. Ribbon-like high density material along the cortical surface of the medial right occipital lobe, unchanged. Findings typical of calcification or an AVM. This can be further differentiated by MRI. CTA brain IMPRESSION: No obvious abnormality involving the [place]. Limited study due to motion artifacts. CTA neck IMPRESSION: Origins of great vessels are not included in the study. Otherwise unremarkable study. Left lobe thyroid nodule. Ultrasound evaluation is recommended. Multilevel cervical spondylosis most marked at C6-7. Brain MRI reported as infarct in right parietal region not acute but new since prior CT of 09/20/2016, there is susceptibility artifact in the region of infarcts suggesting prior hemorrhage. -Status epilepitus: treat with keppra and prn iv ativan, neurologist consulted -New subacute ischemic stroke, ?hemorrhage conversion: get mri, stroke protocol , treat with asa, statin, (history of anticoagulation needs to be elucidated)==> not on anticoagulation at home -Acute encephalopathy due to the above -Severe protein calorie malnutrition, bmi 17.6: consulted combination machine tender, dietary supplements -History of pe/dvt: history of anticoagulation needs to be investigated -DVT prophylaxis: scd and sq lovenox to be d/c because blood in the infarcts d/w son Jordan @ [phone]==>Jordan's says his mother is not on blood thinners anymore, she completed the blood thinners. He also tells me that she did not take medication yesterday. Discussed with patient's son, Jordan who lives with her. She went to 3 yo graduation and went to [facility] after and she was doing okay. She was complaining of being cold. Then he found her on the floor about 5 minutes. He noticed slurred speech. Jordan's says his mother is not on blood thinners anymore, she completed the blood thinners. NOT on anticoagulation at home. 09/02/17: I called Neurology to discuss, Dr. Partida will call me back because he dictation/recommendation is not available in [facility] yet. I spoke with Dr. Partida and told him about the MRI, he will investigate 09/03/17: Repeat CT head r/o hemorrhagic conversion. D/W son Jordan over the phone. Disposition: SNF when available. Son, doesn't want [facility] 09/04/17: Case management not available today, await placement History Interval history: Patient was seen and examined. Follow-up on current diagnosis of seizures. Overnight uneventful. Patient is talking some. Imaging, nursing note, chart, labs and old chart reviewed. Hospitalist Physical - Physical exam Narrative exam: GEN: severe cachetic, bmi 17.6, lethargic, mumbles HEENT: NCAT, EOMI, PERRL, OP Clear NECK: supple, no adenopathy, _+ thyromegaly, no JVD CVS/HEART: rrr, normal S1S2, pulses present bilaterally CHEST/LUNGS: Symmetrical chest expansion, good air entry bilaterally GI/Abdomen: soft, NTND, good bowel sounds, no guarding or rebound /Bladder: no suprapubic tenderness, no CVA or paraspinal tenderness EXT/Skin: no c/c/e, no obvious rash MSK: moving right side, left hemiparesis Neuro: CN 2-12 grossly intact, doesn't follow commands Psych: confused - Constitutional Vitals: Temp Pulse Resp BP Pulse Ox 98.5 F 77 20 101/63 95 09/04/17 08:48 09/04/17 08:48 09/04/17 08:48 09/04/17 08:48 09/04/17 10:00 Results - Labs CBC & Chem 7: 09/04/17 05:06 09/04/17 05:06 Labs: Laboratory Last Values WBC 6.1 K/mm3 (4.5-11.0) 09/04/17 05:06 RBC 3.82 M/mm3 (3.65-5.03) 09/04/17 05:06 Hgb 12.0 gm/dl (10.1-14.3) 09/04/17 05:06 Hct 36.5 % (30.3-42.9) 09/04/17 05:06 MCV 96 fl (79-97) 09/04/17 05:06 MCH 32 pg (28-32) 09/04/17 05:06 MCHC 33 % (30-34) 09/04/17 05:06 RDW 14.1 % (13.2-15.2) 09/04/17 05:06 Plt Count 225 K/mm3 (140-440) 09/04/17 05:06 Lymph % (Auto) 5.0 % (13.4-35.0) L 08/31/17 15:45 [place] % (Auto) 5.4 % (0.0-7.3) 08/31/17 15:45 Eos % (Auto) 0.1 % (0.0-4.3) 08/31/17 15:45 Baso % (Auto) 0.2 % (0.0-1.8) 08/31/17 15:45 Lymph # 0.4 K/mm3 (1.2-5.4) L 08/31/17 15:45 [place] # 0.5 K/mm3 (0.0-0.8) 08/31/17 15:45 Eos # 0.0 K/mm3 (0.0-0.4) 08/31/17 15:45 Baso # 0.0 K/mm3 (0.0-0.1) 08/31/17 15:45 Seg Neutrophils % 89.3 % (40.0-70.0) H 08/31/17 15:45 Seg Neutrophils # 8.0 K/mm3 (1.8-7.7) H 08/31/17 15:45 VBG pH 7.355 (7.320-7.420) 08/31/17 17:12 Sodium 138 mmol/L (137-145) 09/04/17 05:06 Potassium 3.5 mmol/L (3.6-5.0) L 09/04/17 05:06 Chloride 98.6 mmol/L (98-107) 09/04/17 05:06 Carbon Dioxide 25 mmol/L (22-30) 09/04/17 05:06 Anion Gap 18 mmol/L 09/04/17 05:06 BUN 10 mg/dL (7-17) 09/04/17 05:06 Creatinine 0.6 mg/dL (0.7-1.2) L 09/04/17 05:06 Estimated GFR > 60 ml/min 09/04/17 05:06 BUN/Creatinine Ratio 17 % 09/04/17 05:06 Glucose 258 mg/dL (65-100) H 09/04/17 05:06 POC Glucose 166 (70-105) H 09/04/17 13:01 Calcium 9.2 mg/dL (8.4-10.2) 09/04/17 05:06 Total Bilirubin 0.20 mg/dL (0.1-1.2) 08/31/17 15:45 AST 26 units/L (5-40) 08/31/17 15:45 ALT 47 units/L (7-56) 08/31/17 15:45 Alkaline Phosphatase 61 units/L (35-129) 08/31/17 15:45 Total Creatine Kinase 338 units/L (30-135) H 09/01/17 09:21 CK-MB (CK-2) 5.4 ng/mL (0.0-4.0) H 09/01/17 09:21 CK-MB (CK-2) Rel Index 1.5 (0-4) 09/01/17 09:21 Troponin T < 0.010 ng/mL (0.00-0.029) 09/01/17 09:21 Total Protein 6.3 g/dL (6.3-8.2) 08/31/17 15:45 Albumin 3.9 g/dL (3.9-5) 08/31/17 15:45 Albumin/Globulin Ratio 1.6 % 08/31/17 15:45 Triglycerides 78 mg/dL (2-149) 09/01/17 09:16 Cholesterol 196 mg/dL (50-199) 09/01/17 09:16 LDL Cholesterol Direct 89 mg/dL (50-130) 09/01/17 09:16 HDL Cholesterol 123 mg/dL (40-59) H 09/01/17 09:16 Cholesterol/HDL Ratio 1.59 % 09/01/17 09:16 TSH 2.310 mlU/mL (0.270-4.200) 08/31/17 15:45 Plasma/Serum Alcohol < 0.01 % (0-0.07) 08/31/17 15:45
[2017-09-05] MEDS: HumaLOG SUB-Q SCH ×4 (00:19→18:44)
--- NOTE | 2017-09-05 07:21 | Progress Note ---
Assessment and Plan Assessment and plan: Ms. Neil is a 72 yo woman with a history of htn, dm type2, dlp, Left leg dvt, bilateral lung PE and sz who pw multiple seizures from home with confusion. Old records show that patient was on Eliquis in 2017 but not listed on home medications now. Teleneurology was used and patient was deemed not tpa candidate because of no actual "last known well time" and on blood thinners ( disproven). CT brain wo contrast IMPRESSION: 1. New area of hypodensity in the right superior parietal and occipital region consistent with an evolving subacute infarct 2. Ribbon-like high density material along the cortical surface of the medial right occipital lobe, unchanged. Findings typical of calcification or an AVM. This can be further differentiated by MRI. CTA brain IMPRESSION: No obvious abnormality involving the [place]. Limited study due to motion artifacts. CTA neck IMPRESSION: Origins of great vessels are not included in the study. Otherwise unremarkable study. Left lobe thyroid nodule. Ultrasound evaluation is recommended. Multilevel cervical spondylosis most marked at C6-7. Brain MRI reported as infarct in right parietal region not acute but new since prior CT of 09/20/2016, there is susceptibility artifact in the region of infarcts suggesting prior hemorrhage. -Status epilepitus: treat with keppra and prn iv ativan, neurologist consulted -New subacute ischemic stroke, ?hemorrhage conversion: get mri, stroke protocol , treat with asa, statin, (history of anticoagulation needs to be elucidated)==> not on anticoagulation at home -Acute encephalopathy due to the above -Severe protein calorie malnutrition, bmi 17.6: consulted lunchroom attendant, dietary supplements -History of pe/dvt: history of anticoagulation needs to be investigated -DVT prophylaxis: scd and sq lovenox to be d/c because blood in the infarcts d/w son Jordan @ [phone]==>Jordan's says his mother is not on blood thinners anymore, she completed the blood thinners. He also tells me that she did not take medication yesterday. Discussed with patient's son, Jordan who lives with her. She went to 3 yo graduation and went to [facility] after and she was doing okay. She was complaining of being cold. Then he found her on the floor about 5 minutes. He noticed slurred speech. Jordan's says his mother is not on blood thinners anymore, she completed the blood thinners. NOT on anticoagulation at home. 09/02/17: I called Neurology to discuss, Dr. Partida will call me back because he dictation/recommendation is not available in [facility] yet. I spoke with Dr. Partida and told him about the MRI, he will investigate 09/03/17: Repeat CT head r/o hemorrhagic conversion. D/W son Jordan over the phone. Disposition: SNF when available. Son, doesn't want [facility] 09/04/17: Case management not available today, await placement 09/05/17: slightly low bp report to me overnight 94/57 hr 76 without new symptoms , pt only weighs 49kg; bp increased to 114/68 without any intervention, continue to monitor, encourage po intake which is an issue, accucheck q6hr due to poor oral intake, still awaiting on case management to arrange for placement () History Interval history: Patient was seen and examined. Follow-up on current diagnosis of seizures. Overnight eventful with slightly low sbp of 94 but no new symptoms. Patient is talking some. Imaging, nursing note, chart, labs and old chart reviewed. Hospitalist Physical - Physical exam Narrative exam: GEN: severe cachetic, bmi 17.6, lethargic, mumbles HEENT: NCAT, EOMI, PERRL, OP Clear NECK: supple, no adenopathy, _+ thyromegaly, no JVD CVS/HEART: rrr, normal S1S2, pulses present bilaterally CHEST/LUNGS: Symmetrical chest expansion, good air entry bilaterally GI/Abdomen: soft, NTND, good bowel sounds, no guarding or rebound /Bladder: no suprapubic tenderness, no CVA or paraspinal tenderness EXT/Skin: no c/c/e, no obvious rash MSK: moving right side, left hemiparesis Neuro: CN 2-12 grossly intact, doesn't follow commands Psych: confused - Constitutional Vitals: Temp Pulse Resp BP Pulse Ox 97.8 F 91 H 20 114/68 100 09/04/17 20:15 09/05/17 02:41 09/05/17 00:23 09/04/17 20:15 09/05/17 02:41 Results - Labs CBC & Chem 7: 09/04/17 05:06 09/04/17 05:06 Labs: Laboratory Last Values WBC 6.1 K/mm3 (4.5-11.0) 09/04/17 05:06 RBC 3.82 M/mm3 (3.65-5.03) 09/04/17 05:06 Hgb 12.0 gm/dl (10.1-14.3) 09/04/17 05:06 Hct 36.5 % (30.3-42.9) 09/04/17 05:06 MCV 96 fl (79-97) 09/04/17 05:06 MCH 32 pg (28-32) 09/04/17 05:06 MCHC 33 % (30-34) 09/04/17 05:06 RDW 14.1 % (13.2-15.2) 09/04/17 05:06 Plt Count 225 K/mm3 (140-440) 09/04/17 05:06 Lymph % (Auto) 5.0 % (13.4-35.0) L 08/31/17 15:45 [place] % (Auto) 5.4 % (0.0-7.3) 08/31/17 15:45 Eos % (Auto) 0.1 % (0.0-4.3) 08/31/17 15:45 Baso % (Auto) 0.2 % (0.0-1.8) 08/31/17 15:45 Lymph # 0.4 K/mm3 (1.2-5.4) L 08/31/17 15:45 [place] # 0.5 K/mm3 (0.0-0.8) 08/31/17 15:45 Eos # 0.0 K/mm3 (0.0-0.4) 08/31/17 15:45 Baso # 0.0 K/mm3 (0.0-0.1) 08/31/17 15:45 Seg Neutrophils % 89.3 % (40.0-70.0) H 08/31/17 15:45 Seg Neutrophils # 8.0 K/mm3 (1.8-7.7) H 08/31/17 15:45 VBG pH 7.355 (7.320-7.420) 08/31/17 17:12 Sodium 138 mmol/L (137-145) 09/04/17 05:06 Potassium 3.5 mmol/L (3.6-5.0) L 09/04/17 05:06 Chloride 98.6 mmol/L (98-107) 09/04/17 05:06 Carbon Dioxide 25 mmol/L (22-30) 09/04/17 05:06 Anion Gap 18 mmol/L 09/04/17 05:06 BUN 10 mg/dL (7-17) 09/04/17 05:06 Creatinine 0.6 mg/dL (0.7-1.2) L 09/04/17 05:06 Estimated GFR > 60 ml/min 09/04/17 05:06 BUN/Creatinine Ratio 17 % 09/04/17 05:06 Glucose 258 mg/dL (65-100) H 09/04/17 05:06 POC Glucose 217 (70-105) H 09/05/17 06:25 Calcium 9.2 mg/dL (8.4-10.2) 09/04/17 05:06 Total Bilirubin 0.20 mg/dL (0.1-1.2) 08/31/17 15:45 AST 26 units/L (5-40) 08/31/17 15:45 ALT 47 units/L (7-56) 08/31/17 15:45 Alkaline Phosphatase 61 units/L (35-129) 08/31/17 15:45 Total Creatine Kinase 338 units/L (30-135) H 09/01/17 09:21 CK-MB (CK-2) 5.4 ng/mL (0.0-4.0) H 09/01/17 09:21 CK-MB (CK-2) Rel Index 1.5 (0-4) 09/01/17 09:21 Troponin T < 0.010 ng/mL (0.00-0.029) 09/01/17 09:21 Total Protein 6.3 g/dL (6.3-8.2) 08/31/17 15:45 Albumin 3.9 g/dL (3.9-5) 08/31/17 15:45 Albumin/Globulin Ratio 1.6 % 08/31/17 15:45 Triglycerides 78 mg/dL (2-149) 09/01/17 09:16 Cholesterol 196 mg/dL (50-199) 09/01/17 09:16 LDL Cholesterol Direct 89 mg/dL (50-130) 09/01/17 09:16 HDL Cholesterol 123 mg/dL (40-59) H 09/01/17 09:16 Cholesterol/HDL Ratio 1.59 % 09/01/17 09:16 TSH 2.310 mlU/mL (0.270-4.200) 08/31/17 15:45 Plasma/Serum Alcohol < 0.01 % (0-0.07) 08/31/17 15:45
[2017-09-05] MEDS: TOPAMAX PO SCH ×2 (12:42→21:38)
[2017-09-05] MEDS: ASPIRIN PO SCH (12:42)
[2017-09-05] MEDS: KEPPRA PO SCH ×2 (12:43→21:38)
[2017-09-06] MEDS: HumaLOG SUB-Q SCH ×4 (02:09→18:50)
[2017-09-06] MEDS: ASPIRIN PO SCH (09:49)
[2017-09-06] MEDS: TOPAMAX PO SCH ×2 (09:49→21:43)
[2017-09-06] MEDS: KEPPRA PO SCH ×2 (09:49→21:43)
--- NOTE | 2017-09-06 09:55 | Progress Note ---
Assessment and Plan Assessment and plan: Ms. Neil is a 72 yo woman with a history of htn, dm type2, dlp, Left leg dvt, bilateral lung PE and sz who pw multiple seizures from home with confusion. Old records show that patient was on Eliquis in 2017 but not listed on home medications now. Teleneurology was used and patient was deemed not tpa candidate because of no actual "last known well time" and on blood thinners ( disproven). CT brain wo contrast IMPRESSION: 1. New area of hypodensity in the right superior parietal and occipital region consistent with an evolving subacute infarct 2. Ribbon-like high density material along the cortical surface of the medial right occipital lobe, unchanged. Findings typical of calcification or an AVM. This can be further differentiated by MRI. CTA brain IMPRESSION: No obvious abnormality involving the [place]. Limited study due to motion artifacts. CTA neck IMPRESSION: Origins of great vessels are not included in the study. Otherwise unremarkable study. Left lobe thyroid nodule. Ultrasound evaluation is recommended. Multilevel cervical spondylosis most marked at C6-7. Brain MRI reported as infarct in right parietal region not acute but new since prior CT of 09/20/2016, there is susceptibility artifact in the region of infarcts suggesting prior hemorrhage. -Status epilepitus: treat with keppra and prn iv ativan, neurologist consulted -New subacute ischemic stroke, r/o hemorrhage conversion: get mri, stroke protocol, treat with asa, statin, (history of anticoagulation needs to be elucidated)==>not on anticoagulation at home -Acute encephalopathy due to the above -Severe protein calorie malnutrition, bmi 17.6: consulted registered nurse fetal, dietary supplements -History of pe/dvt: history of anticoagulation needs to be investigated -DVT prophylaxis: scd and sq lovenox to be d/c because blood in the infarcts d/w son Jordan @ [phone]==>Jordan's says his mother is not on blood thinners anymore, she completed the blood thinners. He also tells me that she did not take medication yesterday. Discussed with patient's son, Jordan who lives with her. She went to 3 yo graduation and went to [facility] and she was doing okay. She was complaining of being cold. Then he found her on the floor about 5 minutes. He noticed slurred speech. Jordan's says his mother is not on blood thinners anymore, she completed the blood thinners. NOT on anticoagulation at home. 09/02/17: I called Neurology to discuss, Dr. Partida will call me back because he dictation/recommendation is not available in [facility] yet. I spoke with Dr. Partida and told him about the MRI, he will investigate 09/03/17: Repeat CT head r/o hemorrhagic conversion. D/W son Jordan over the phone. Disposition: SNF when available. Son, doesn't want [facility] 09/04/17: Case management not available today, await placement 09/05/17: slightly low bp report to me overnight 94/57 hr 76 without new symptoms , pt only weighs 49kg; bp increased to 114/68 without any intervention, continue to monitor, encourage po intake which is an issue, accucheck q6hr due to poor oral intake, still awaiting on case management to arrange for placement () 09/06/17: awaiting placement, repeat CT head showed no hemorrhage History Interval history: Patient was seen and examined. Follow-up on current diagnosis of seizures. Overnight eventful with slightly low sbp of 94 but no new symptoms. Patient is talking some. Imaging, nursing note, chart, labs and old chart reviewed. Hospitalist Physical - Physical exam Narrative exam: GEN: severe cachetic, bmi 17.6, lethargic, mumbles HEENT: NCAT, EOMI, PERRL, OP Clear NECK: supple, no adenopathy, _+ thyromegaly, no JVD CVS/HEART: rrr, normal S1S2, pulses present bilaterally CHEST/LUNGS: Symmetrical chest expansion, good air entry bilaterally GI/Abdomen: soft, NTND, good bowel sounds, no guarding or rebound /Bladder: no suprapubic tenderness, no CVA or paraspinal tenderness EXT/Skin: no c/c/e, no obvious rash MSK: moving right side, left hemiparesis Neuro: CN 2-12 grossly intact, doesn't follow commands Psych: confused - Constitutional Vitals: Temp Pulse Resp BP Pulse Ox 98.0 F 95 H 20 98/62 100 09/06/17 07:41 09/06/17 07:41 09/06/17 07:41 09/06/17 07:41 09/06/17 07:41 Results - Labs CBC & Chem 7: 09/04/17 05:06 09/04/17 05:06 Labs: Laboratory Last Values WBC 6.1 K/mm3 (4.5-11.0) 09/04/17 05:06 RBC 3.82 M/mm3 (3.65-5.03) 09/04/17 05:06 Hgb 12.0 gm/dl (10.1-14.3) 09/04/17 05:06 Hct 36.5 % (30.3-42.9) 09/04/17 05:06 MCV 96 fl (79-97) 09/04/17 05:06 MCH 32 pg (28-32) 09/04/17 05:06 MCHC 33 % (30-34) 09/04/17 05:06 RDW 14.1 % (13.2-15.2) 09/04/17 05:06 Plt Count 225 K/mm3 (140-440) 09/04/17 05:06 Lymph % (Auto) 5.0 % (13.4-35.0) L 08/31/17 15:45 [place] % (Auto) 5.4 % (0.0-7.3) 08/31/17 15:45 Eos % (Auto) 0.1 % (0.0-4.3) 08/31/17 15:45 Baso % (Auto) 0.2 % (0.0-1.8) 08/31/17 15:45 Lymph # 0.4 K/mm3 (1.2-5.4) L 08/31/17 15:45 [place] # 0.5 K/mm3 (0.0-0.8) 08/31/17 15:45 Eos # 0.0 K/mm3 (0.0-0.4) 08/31/17 15:45 Baso # 0.0 K/mm3 (0.0-0.1) 08/31/17 15:45 Seg Neutrophils % 89.3 % (40.0-70.0) H 08/31/17 15:45 Seg Neutrophils # 8.0 K/mm3 (1.8-7.7) H 08/31/17 15:45 VBG pH 7.355 (7.320-7.420) 08/31/17 17:12 Sodium 138 mmol/L (137-145) 09/04/17 05:06 Potassium 3.5 mmol/L (3.6-5.0) L 09/04/17 05:06 Chloride 98.6 mmol/L (98-107) 09/04/17 05:06 Carbon Dioxide 25 mmol/L (22-30) 09/04/17 05:06 Anion Gap 18 mmol/L 09/04/17 05:06 BUN 10 mg/dL (7-17) 09/04/17 05:06 Creatinine 0.6 mg/dL (0.7-1.2) L 09/04/17 05:06 Estimated GFR > 60 ml/min 09/04/17 05:06 BUN/Creatinine Ratio 17 % 09/04/17 05:06 Glucose 258 mg/dL (65-100) H 09/04/17 05:06 POC Glucose 178 (70-105) H 09/06/17 06:50 Calcium 9.2 mg/dL (8.4-10.2) 09/04/17 05:06 Total Bilirubin 0.20 mg/dL (0.1-1.2) 08/31/17 15:45 AST 26 units/L (5-40) 08/31/17 15:45 ALT 47 units/L (7-56) 08/31/17 15:45 Alkaline Phosphatase 61 units/L (35-129) 08/31/17 15:45 Total Creatine Kinase 338 units/L (30-135) H 09/01/17 09:21 CK-MB (CK-2) 5.4 ng/mL (0.0-4.0) H 09/01/17 09:21 CK-MB (CK-2) Rel Index 1.5 (0-4) 09/01/17 09:21 Troponin T < 0.010 ng/mL (0.00-0.029) 09/01/17 09:21 Total Protein 6.3 g/dL (6.3-8.2) 08/31/17 15:45 Albumin 3.9 g/dL (3.9-5) 08/31/17 15:45 Albumin/Globulin Ratio 1.6 % 08/31/17 15:45 Triglycerides 78 mg/dL (2-149) 09/01/17 09:16 Cholesterol 196 mg/dL (50-199) 09/01/17 09:16 LDL Cholesterol Direct 89 mg/dL (50-130) 09/01/17 09:16 HDL Cholesterol 123 mg/dL (40-59) H 09/01/17 09:16 Cholesterol/HDL Ratio 1.59 % 09/01/17 09:16 TSH 2.310 mlU/mL (0.270-4.200) 08/31/17 15:45 Plasma/Serum Alcohol < 0.01 % (0-0.07) 08/31/17 15:45
[2017-09-06] MEDS: SODIUM CHLORIDE FLUSH SYRINGE 10 ML IV PRN (21:43)
[2017-09-07] MEDS: HumaLOG SUB-Q SCH ×3 (01:00→12:05)
[2017-09-07] MEDS: TOPAMAX PO SCH (09:31)
[2017-09-07] MEDS: KEPPRA PO SCH (09:35)
[2017-09-07] MEDS: ASPIRIN PO SCH (09:35)
--- NOTE | 2017-09-07 10:09 | Consultation ---
History of Present Illness Consult date: 09/07/17 Consult reason: known to you, tachycardia History of present illness: This is a 72yr old woman with multiple medical problems. Patient has a history of pulmonary embolism and deep vein thrombosis and previously on eliquis for oral anticoagulation. An echocardiogram done within the last year documents dilated right heart chambers with severe pulmonary hypertension. Findings consistent with cor pulmonale.There was a normal left ventricular ejection fraction, 55-60%. Patient is admitted postictal of seizures. On telemetry, patient noted persistent sinus tachycardia with occasional PVCs thus this cardiac consultation. Patient has no chest pain or shortness of breath. She denies palpitations. A 12 lead ECG shows a sinus tachycardia. TSH is normal. Medications and Allergies Allergies Allergy/AdvReac Type Severity Reaction Status Date / Time tramadol Allergy Hallucinati Verified 10/01/16 13:14 on Home Medications Medication Instructions Recorded Confirmed Last Taken Type Amlodipine Besylate [Norvasc] 5 mg PO QDAY 10/01/16 09/07/17 Unknown History Insulin Glargine [Lantus VIAL] 10 units SC BID 10/01/16 09/07/17 Unknown History Lovastatin [Altoprev] 20 mg PO QDAY 10/01/16 09/07/17 Unknown History Memantine HCl [Namenda Xr] 20 mg PO QDAY 10/01/16 09/07/17 Unknown History Metformin HCl [Glucophage] 500 mg PO BID 10/01/16 09/07/17 Unknown History Topiramate [Topamax] 100 mg PO BID 10/01/16 09/07/17 Unknown History glipiZIDE [Glucotrol] 5 mg PO BID 10/01/16 09/07/17 Unknown History levETIRAcetam [Keppra TAB] 1,000 mg PO BID #60 tablet 10/08/16 09/07/17 Unknown Rx Active Meds: Active Medications Acetaminophen (Tylenol) 650 mg PO Q4H PRN PRN Reason: Pain, Mild (1-3) Last Admin: 09/04/17 23:23 Dose: 650 mg Aspirin (Aspirin) 325 mg PO QDAY [facility] Last Admin: 09/07/17 09:35 Dose: 325 mg Atorvastatin Calcium (Lipitor) 40 mg PO QHS [facility] Last Admin: 09/06/17 21:43 Dose: 40 mg Bisacodyl (Dulcolax) 10 mg [place] QDAY PRN PRN Reason: Constipation Dextrose (D50w (25gm) Syringe) 50 ml IV PRN PRN PRN Reason: Hypoglycemia Hydralazine HCl (Apresoline) 5 mg IV Q6H PRN PRN Reason: Keep SBP between 160-185 mm Hg Sodium Chloride (Nacl 0.45% 1000 Ml) 1,000 mls @ 50 mls/hr IV DIRECT JONNY Last Admin: 09/04/17 00:52 Dose: 50 mls/hr Insulin Human Lispro (Humalog) 0 unit SUB-Q Q6HR [facility]; Protocol Last Admin: 09/07/17 05:50 Dose: Not Given Levetiracetam (Keppra) 1,000 mg PO BID [facility] Last Admin: 09/07/17 09:35 Dose: 1,000 mg Lorazepam (Ativan) 1 mg IV Q4H PRN PRN Reason: Seizures Last Admin: 09/04/17 00:06 Dose: 1 mg Magnesium Hydroxide (Milk Of Magnesia) 30 ml PO Q4H PRN PRN Reason: Constipation Ondansetron HCl (Zofran) 4 mg IV Q8H PRN PRN Reason: N/V unrelieved by Reglan Sodium Chloride (Sodium Chloride Flush Syringe 10 Ml) 10 ml IV PRN PRN PRN Reason: LINE FLUSH Last Admin: 09/06/17 21:43 Dose: 10 ml Topiramate (Topamax) 100 mg PO BID [facility] Last Admin: 09/07/17 09:31 Dose: 100 mg Physical Examination Vital Signs Pulse Resp BP Pulse Ox 153 H 18 145/79 100 08/31/17 14:54 08/31/17 14:54 08/31/17 14:54 08/31/17 14:54 General appearance: no acute distress HEENT: Positive: PERRL Cardiac: Positive: Tachycardia Results 09/04/17 05:06 09/04/17 05:06 Assessment and Plan Persistent sinus tachycardia, reflex normal TSH Cor pulmonale Hx of PE/DVT
--- NOTE | 2017-09-07 10:28 | Progress Note ---
Assessment and Plan Assessment and plan: -Status epilepticus: Continue to treat with keppra and Topamax and prn iv ativan , -Subacute parietal ischemic infarct. Continue to treat with asa, statin, -Acute encephalopathy due to the above -Severe protein calorie malnutrition, bmi 17.6: consulted cartridge assembler, dietary supplements -History of pe/dvt: Patient is not on anticoagulation. History Interval history: No new issues overnight. Hospitalist Physical - Constitutional Vitals: Temp Pulse Resp BP Pulse Ox 98.0 F 124 H 18 106/72 99 09/07/17 08:03 09/07/17 08:04 09/07/17 08:03 09/07/17 08:03 09/07/17 08:04 General appearance: Present: no acute distress - EENT Eyes: Present: PERRL, EOM intact ENT: hearing intact, clear oral mucosa, dentition normal - Neck Neck: Present: supple, normal ROM - Respiratory Respiratory effort: normal Respiratory: bilateral: CTA - Cardiovascular Rhythm: regular Heart Sounds: Present: S1 & S2. Absent: gallop, rub - Extremities Extremities: no ischemia, No edema, Full ROM - Abdominal General gastrointestinal: soft, non-tender, non-distended, normal bowel sounds - Integumentary Integumentary: Present: clear, warm, dry - Neurologic Neurologic: CNII-XII intact, moves all extremities Results - Labs CBC & Chem 7: 09/04/17 05:06 09/04/17 05:06 Labs: Laboratory Last Values WBC 6.1 K/mm3 (4.5-11.0) 09/04/17 05:06 RBC 3.82 M/mm3 (3.65-5.03) 09/04/17 05:06 Hgb 12.0 gm/dl (10.1-14.3) 09/04/17 05:06 Hct 36.5 % (30.3-42.9) 09/04/17 05:06 MCV 96 fl (79-97) 09/04/17 05:06 MCH 32 pg (28-32) 09/04/17 05:06 MCHC 33 % (30-34) 09/04/17 05:06 RDW 14.1 % (13.2-15.2) 09/04/17 05:06 Plt Count 225 K/mm3 (140-440) 09/04/17 05:06 Lymph % (Auto) 5.0 % (13.4-35.0) L 08/31/17 15:45 [place] % (Auto) 5.4 % (0.0-7.3) 08/31/17 15:45 Eos % (Auto) 0.1 % (0.0-4.3) 08/31/17 15:45 Baso % (Auto) 0.2 % (0.0-1.8) 08/31/17 15:45 Lymph # 0.4 K/mm3 (1.2-5.4) L 08/31/17 15:45 [place] # 0.5 K/mm3 (0.0-0.8) 08/31/17 15:45 Eos # 0.0 K/mm3 (0.0-0.4) 08/31/17 15:45 Baso # 0.0 K/mm3 (0.0-0.1) 08/31/17 15:45 Seg Neutrophils % 89.3 % (40.0-70.0) H 08/31/17 15:45 Seg Neutrophils # 8.0 K/mm3 (1.8-7.7) H 08/31/17 15:45 VBG pH 7.355 (7.320-7.420) 08/31/17 17:12 Sodium 138 mmol/L (137-145) 09/04/17 05:06 Potassium 3.5 mmol/L (3.6-5.0) L 09/04/17 05:06 Chloride 98.6 mmol/L (98-107) 09/04/17 05:06 Carbon Dioxide 25 mmol/L (22-30) 09/04/17 05:06 Anion Gap 18 mmol/L 09/04/17 05:06 BUN 10 mg/dL (7-17) 09/04/17 05:06 Creatinine 0.6 mg/dL (0.7-1.2) L 09/04/17 05:06 Estimated GFR > 60 ml/min 09/04/17 05:06 BUN/Creatinine Ratio 17 % 09/04/17 05:06 Glucose 258 mg/dL (65-100) H 09/04/17 05:06 POC Glucose 63 (70-105) L 09/07/17 05:49 Calcium 9.2 mg/dL (8.4-10.2) 09/04/17 05:06 Total Bilirubin 0.20 mg/dL (0.1-1.2) 08/31/17 15:45 AST 26 units/L (5-40) 08/31/17 15:45 ALT 47 units/L (7-56) 08/31/17 15:45 Alkaline Phosphatase 61 units/L (35-129) 08/31/17 15:45 Total Creatine Kinase 338 units/L (30-135) H 09/01/17 09:21 CK-MB (CK-2) 5.4 ng/mL (0.0-4.0) H 09/01/17 09:21 CK-MB (CK-2) Rel Index 1.5 (0-4) 09/01/17 09:21 Troponin T < 0.010 ng/mL (0.00-0.029) 09/01/17 09:21 Total Protein 6.3 g/dL (6.3-8.2) 08/31/17 15:45 Albumin 3.9 g/dL (3.9-5) 08/31/17 15:45 Albumin/Globulin Ratio 1.6 % 08/31/17 15:45 Triglycerides 78 mg/dL (2-149) 09/01/17 09:16 Cholesterol 196 mg/dL (50-199) 09/01/17 09:16 LDL Cholesterol Direct 89 mg/dL (50-130) 09/01/17 09:16 HDL Cholesterol 123 mg/dL (40-59) H 09/01/17 09:16 Cholesterol/HDL Ratio 1.59 % 09/01/17 09:16 TSH 2.310 mlU/mL (0.270-4.200) 08/31/17 15:45 Plasma/Serum Alcohol < 0.01 % (0-0.07) 08/31/17 15:45
--- NOTE | 2017-09-07 14:12 | Discharge Summary ---
Providers - Providers Date of Admission: 08/31/17 23:27 Date of discharge: 09/07/17 Attending physician: JADA CARTER 08/31/17 Consult to Physician [CONS] Routine Comment: CLARE NOTIFIED 804 Consulting Provider: MALI CALVILLO Physician Instructions: Reason For Exam: cva 08/31/17 23:27 Occupational Therapy Evaluate and Treat [CONS] Routine Comment: Reason For Exam: Neuro deficits Physical Therapy Evaluation and Treat [CONS] Routine Comment: Reason For Exam: Neuro deficits 09/01/17 14:04 Speech Therapy Evaluation and Treat [CONS] Routine Reason For Exam: evaluate swallowing 09/06/17 20:30 Consult to Cardiology [CONS] Urgent Consulting Provider: FABRICE SALAZAR Reason For Exam: Pulmonary heart disease. Primary care physician: FABRIC AWNING REPAIRER Hospitalization Reason for admission: cva Condition: Stable Hospital course: Ms. Neil is a 72 yo woman with a history of htn, dm type2, dlp, Left leg dvt, bilateral lung PE and sz who pw multiple seizures from home with confusion. Old records show that patient was on Eliquis in 2017 but not listed on home medications on admission. Teleneurology was used and patient was deemed not tpa candidate because of no actual "last known well time". CT brain wo contrast revealed New area of hypodensity in the right superior parietal and occipital region consistent with an evolving subacute infarct. Patient had a follow-up CT scan which revealed no hemorrhagic conversion. Patient was treated with Keppra for status epilepticus related to the CVA. Patient had no further seizure activity. Other issues during hospital stay included tachycardia. Patient was also seen by cardiology with regards to the tachycardia. Etiology was felt to be secondary to cor pulmonale and pulmonary hypertension from previous history of multiple PEs. Cardiology recommended digoxin daily and resume anticoagulation with Eliquis. Case management was consulted with regards to placement. Patient will discharge to SNF. Dedicated discharge time 35 minutes. Disposition: [id number]/[place]-03 SNF [facility] Time spent for discharge: 32 - Discharge Diagnoses (1) Cerebrovascular accident Status: Acute Qualifiers: CVA mechanism: unspecified Qualified Code(s): I63.9 - Cerebral infarction, unspecified (2) Seizure Status: Acute (3) Abnormal CT of brain Status: Acute (4) Altered mental status Status: Acute Qualifiers: Altered mental status type: disorientation Qualified Code(s): R41.0 - Disorientation, unspecified (5) Anemia Status: Acute Qualifiers: Anemia type: unspecified type Qualified Code(s): D64.9 - Anemia, unspecified Core Measure Documentation - Palliative Care Palliative Care/ Comfort Measures: Not Applicable - Core Measures Any of the following diagnoses?: stroke, none - Stroke Discharge Requirements Statin for LDL = or >70 mg/dl on DC: Yes Anticoag for atrial fib/atrial flutter: Not Applicable Antithrombotic for ischemic stroke: Yes Exam - Constitutional Vitals: Temp Pulse Resp BP Pulse Ox 97.8 F 66 18 95/52 60 L 09/07/17 12:47 09/07/17 12:48 09/07/17 12:47 09/07/17 12:47 09/07/17 12:48 General appearance: Present: no acute distress, well-nourished - EENT Eyes: Present: PERRL ENT: hearing intact, clear oral mucosa - Neck Neck: Present: supple, normal ROM - Respiratory Respiratory effort: normal Respiratory: bilateral: CTA - Cardiovascular Heart Sounds: Present: S1 & S2. Absent: rub, click - Extremities Extremities: pulses symmetrical, No edema Peripheral Pulses: within normal limits - Abdominal General gastrointestinal: Present: soft, non-tender, non-distended, normal bowel sounds Female genitourinary: Present: normal - Integumentary Integumentary: Present: clear, warm, dry - Musculoskeletal Musculoskeletal: gait normal, strength equal bilaterally - Psychiatric Psychiatric: appropriate mood/affect, intact judgment & insight - Neurologic Neurologic: CNII-XII intact, moves all extremities Plan Activity: no restrictions Weight Bearing Status: Weight Bear as Tolerated Diet: regular Follow up with: PRIMARY CARE, [Primary Care Provider] - 3-5 Days
[2017-09-07 16:11] VITALS: BP 100/60
[2017-09-07] MEDS ORDERED: LANOXIN PO SCH (17:00)
[2017-09-08] MEDS ORDERED: ECOTRIN PO SCH (10:00)
== END 2017-09-07 16:30 | DRG 64 ==
LOC: ED 14:33 → 4A 23:27 → 2B-ACE 09-01 11:22
PROVIDERS: ADMIT Internal Medicine; ATTEND Hospitalist
DX: I63.9 Cerebral infarction, unspecified (principal); E43 Unspecified severe protein-calorie malnutrition; Z68.1 Body mass index [BMI] 19.9 or less, adult; I10 Essential (primary) hypertension; G40.901 Epilepsy, unspecified, not intractable, with status epilepticus; E11.9 Type 2 diabetes mellitus without complications; J45.909 Unspecified asthma, uncomplicated; E78.5 Hyperlipidemia, unspecified; R00.0 Tachycardia, unspecified; I27.20 Pulmonary hypertension, unspecified; Z90.710 Acquired absence of both cervix and uterus; Z86.718 Personal history of other venous thrombosis and embolism; Z79.01 Long term (current) use of anticoagulants; Z86.711 Personal history of pulmonary embolism; Z79.4 Long term (current) use of insulin
CPT/HCPCS: 36415; 70450; 70496; 70498; 70551; 80048; 80053; 80061; 80162; 80320; 82550; 82553; 82805; 82962; 84443; 84484; 85025; 85027; 93005; 93010; 93306; 93880; 94760; 96374; 96375; A9270-GY; G0480; G8978-GP; G8979-GP; G8987-GO; G8988-GO; G8996-GN; G8997-GN; J1650; J1815; J1953; J2060; J7040; Q9967